=== PATIENT | female | born 1960 | race Caucasian/White ===

== ENCOUNTER 2022-01-08 13:11 | Emergency (ER) | payer OTHER ==
[~2022-01-08] VITALS: Ht 162.6 cm; Wt 70.0 kg
[2022-01-08] MEDS ORDERED: PERM60CR19 TP (14:06)
[2022-01-08] MEDS ORDERED: HYDR28.35 TP (14:16)
[2022-01-08 14:49] VITALS: BP 159/81
== END 2022-01-08 14:49 | disposition home or self-care (01) ==
LOC: EMS 13:19
DX: R21 Rash and other nonspecific skin eruption (principal); I10 Essential (primary) hypertension; E78.00 Pure hypercholesterolemia, unspecified; F41.9 Anxiety disorder, unspecified; F17.210 Nicotine dependence, cigarettes, uncomplicated
CPT/HCPCS: 99282; Z7502